=== PATIENT | female | born 1945 | race Caucasian/White ===

== ENCOUNTER 2016-12-07 09:22 | Day surgery (SDC) | payer OTHER, BC ==
[~2016-12-07] VITALS: Ht 160 cm; Wt 83.3 kg
[2016-12-07 10:07] LABS: BASOPHIL COUNT 0.1 K/uL (0-0.1); EOSINOPHIL (%) 0.3 % (0-5); EOSINOPHIL COUNT 0.1 K/uL (0-0.3); HEMATOCRIT 43.5 % (36.0-46.0); IMMATURE GRANULOCYTE (%) 0.6 % (0.0-0.7); IMMATURE GRANULOCYTE COUNT 0.1 K/uL; INSTRUMENT ABS NEUTROPHIL CT 15.4 K/uL; MCH 26.9 PG (29.0-34.0); MCHC 31.5 G/DL (30.0-36.0); MCV 85.5 FL (83-99); MONOCYTE (%) 6.1 % (3-12); MONOCYTE COUNT 1.1 K/uL (0-0.8); NEUTROPHIL (%) 87.2 % (45-76); NEUTROPHIL COUNT 15.4 K/uL (1.8-6.4); PLATELET COUNT 205 K/uL (156-360); RBC DIS.WIDTH-CV 14.3 % (11.8-14.6); RBC DIS.WIDTH-SD 45.1 % (39-53); RED BLOOD COUNT 5.09 M/uL (3.80-5.20); WHITE BLOOD COUNT 17.6 K/uL (4.1-10.2)
[2016-12-07 10:27] LABS: TROP-I INTERPRETATION NEGATIVE; TROPONIN-I < 0.01 ng/mL (0.0-0.30)
[2016-12-07 10:39] LABS: ANION GAP 10 MEQ/L (2-14); CHLORIDE 101 MEQ/L (99-109); POTASSIUM 3.3 MEQ/L (3.7-5.4); SAMPLE HEMOLYSIS CHECK 0; SAMPLE ICTERIC CHECK 0; SAMPLE LIPEMIA CHECK 0; SODIUM 139 MEQ/L (136-147)
[2016-12-07 10:45] LABS: GFR ESTIMATE (CALCULATED) 37 mL/min/; GLUCOSE 135 mg/dL (70-99); UREA NITROGEN (BUN) 25 mg/dL (9-23)
[2016-12-07 13:36] LABS: ANION GAP 8 MEQ/L (2-14); CHLORIDE 103 MEQ/L (99-109); DIRECT BILIRUBIN 0.3 mg/dL (0.0-0.3); POTASSIUM 3.4 MEQ/L (3.7-5.4); SAMPLE HEMOLYSIS CHECK 0; SAMPLE ICTERIC CHECK 0; SAMPLE LIPEMIA CHECK 0; SODIUM 139 MEQ/L (136-147); TOTAL BILIRUBIN 0.9 MG/DL (0.0-1.0)
[2016-12-07 13:41] LABS: ALKALINE PHOSPHATASE 123 IU/L (3-129); GFR ESTIMATE (CALCULATED) 40 mL/min/; GLUCOSE 121 mg/dL (70-99); LIPASE 6 U/L (1.0-51.0); UREA NITROGEN (BUN) 24 mg/dL (9-23)
[2016-12-07 13:53] LABS: ADD MIUA? YES; BILIRUBIN NEGATIVE; BLOOD SMALL; COLOR YELLOW ((YELLOW)); GLUCOSE (STRIP) NEGATIVE; KETONES NEGATIVE; LEUKOCYTES NEGATIVE; NITRITE NEGATIVE; PROTEIN (STRIP) 30; SPECIFIC GRAVITY 1.012 (1.000-1.030); UROBILINOGEN 0.2 MG/DL (0.2-1.0)
[2016-12-07 14:15] LABS: BACTERIA RARE /HPF; EPITHELIAL CELLS 1+ /HPF; HYALINE CASTS 0-5 /LPF; MUCUS TRACE /LPF; RED BLOOD CELLS 0-5 /HPF (0-5); UCUL ADDED? NO; URIC ACID CRYSTALS 1+ /HPF
[2016-12-07 14:25] LABS: HIV INDEX 0.17; HIV-1/2 AB/AG COMBO Nonreactive
[2016-12-07] MEDS ORDERED: OXYCODONE HCL5 MG PO (17:19)
[2016-12-07 18:20] VITALS: BP 140/69
[2016-12-07] MEDS ORDERED: CELEBREX200 MG PO (19:26)
[2016-12-07] MEDS ORDERED: VESICARE5 MG PO (19:27)
[2016-12-07] MEDS ORDERED: EFFEXOR XR37.5 MG PO (19:27)
[2016-12-07] MEDS ORDERED: MAXZIDE 37.5 M1 EACH PO (19:27)
[2016-12-07] MEDS ORDERED: CALTRATE+D3 PL1 EACH PO (19:29)
[2016-12-07] MEDS ORDERED: VITAMIN A8000 UNIT PO (19:30)
[2016-12-07] MEDS ORDERED: POTASSIUM-9999 MG PO (19:30)
[2016-12-07] MEDS ORDERED: MAGNESIUM250 MG PO (19:31)
[2016-12-07] MEDS ORDERED: B 12 PO (19:33)
[2016-12-07] MEDS ORDERED: TOPAMAX50 MG PO (19:33)
[2016-12-07] MEDS ORDERED: LIPITOR10 MG PO (19:33)
[2016-12-07 19:34] VITALS: BP 150/76
[2016-12-07] MEDS ORDERED: CALTRATE PO (19:36)
[2016-12-07] MEDS ORDERED: [UNRECOGNIZED DRUG - OTHER] PO (19:36)
[2016-12-07 23:21] VITALS: BP 125/65
[2016-12-08 03:41] VITALS: BP 126/68
[2016-12-08 08:15] VITALS: BP 110/57
[2016-12-08 08:22] LABS: HEMATOCRIT 40.9 % (36.0-46.0); MCH 27.1 PG (29.0-34.0); MCHC 31.1 G/DL (30.0-36.0); MCV 87.2 FL (83-99); MEAN PLAT.VOLUME 9.5 uM^3 (9.5-12.4); PLATELET COUNT 197 K/uL (156-360); RBC DIS.WIDTH-CV 14.4 % (11.8-14.6); RBC DIS.WIDTH-SD 46.4 % (39-53); RED BLOOD COUNT 4.69 M/uL (3.80-5.20)
[2016-12-08 10:48] LABS: ANION GAP 8 MEQ/L (2-14); CHLORIDE 110 MEQ/L (99-109); GFR ESTIMATE (CALCULATED) 43 mL/min/; GLUCOSE 164 mg/dL (70-99); SAMPLE HEMOLYSIS CHECK 1; SAMPLE ICTERIC CHECK 0; SAMPLE LIPEMIA CHECK 0; SODIUM 140 MEQ/L (136-147); UREA NITROGEN (BUN) 20 mg/dL (9-23)
== END 2016-12-08 12:14 | disposition home or self-care (01) ==
LOC: EME → EDBD 09:22 → EME 09:22 → SDC 15:56 → 2EAST 16:56 → 2SOUTH 16:56 → 2EAST 18:28
PROVIDERS: Emergency Medicine; Surgery
DX: K80.00 Calculus of gallbladder with acute cholecystitis without obstruction (principal); B96.1 Klebsiella pneumoniae [K. pneumoniae] as the cause of diseases classified elsewhere; R68.89 Other general symptoms and signs; K66.0 Peritoneal adhesions (postprocedural) (postinfection); D72.829 Elevated white blood cell count, unspecified; E66.9 Obesity, unspecified; Z68.32 Body mass index [BMI] 32.0-32.9, adult; I10 Essential (primary) hypertension; E78.5 Hyperlipidemia, unspecified; M19.90 Unspecified osteoarthritis, unspecified site; F41.9 Anxiety disorder, unspecified; F32.9 Major depressive disorder, single episode, unspecified
CPT/HCPCS: 71020; 76705; 80048; 80053; 81003; 82248; 83605; 83690; 84484; 85025; 85027; 85730; 86703; 87040; 87070; 87077; 87205; 88304; 93005; 99281; 99285; G0378; J0131; J0330; J1100; J1170; J1650; J2250; J2405; J2543; J2710; J2765; J3010; J7030